=== PATIENT | female | born 2000 | race Caucasian/White ===

== ENCOUNTER 2022-02-19 17:56 | Emergency (ER) | payer MEDICAID ==
[2022-02-19 19:34] LABS: CORONAVIRUS COVID-19 NAA NEGATIVE (NEGATIVE)
== END 2022-02-19 20:30 | disposition home or self-care (01) ==
LOC: JD.ED 17:56
DX: J06.9 Acute upper respiratory infection, unspecified (principal); Z20.822 Contact with and (suspected) exposure to COVID-19; Z88.0 Allergy status to penicillin; Z88.2 Allergy status to sulfonamides; Z86.16 Personal history of COVID-19
CPT/HCPCS: 0240U; 36415; 71045; 80053; 84703; 85025; 86140; 87651; 93005; 99285

== ENCOUNTER 2022-04-10 18:18 | Emergency (ER) | payer MEDICAID | END 2022-04-10 22:10 | disposition home or self-care (01) | LOC: JD.ED 18:18 | DX: O20.9 Hemorrhage in early pregnancy, unspecified (principal); Z3A.00 Weeks of gestation of pregnancy not specified; Z88.2 Allergy status to sulfonamides; Z88.0 Allergy status to penicillin; Z86.16 Personal history of COVID-19; Z87.891 Personal history of nicotine dependence | CPT/HCPCS: 36415; 76817; 76817-26; 81001; 84702; 85014; 85018; 86900; 86901; 99284 ==